=== PATIENT | female | born 1970 | race Hispanic/Latino ===

== ENCOUNTER → 2024-05-06 | Outpatient (CLI) | payer BC, OTHER ==
[~2024-05-06] MED LIST: GADOTERATE MEGLUMINE 10 MMOL/20 ML VIAL IV ONE
--- NOTE | 2024-05-06 11:59 | HMCIMG ---
MR BRAIN AND IACS WWO CON REASON: H90.3 Sensorineural hearing loss, bilateral COMPARISON: There are no prior MRI scans available for comparison. TECHNIQUE: Routine cerebral imaging protocol was performed. Images are also obtained pre and post gadolinium contrast infusion. Additional high-resolution images were obtained of the internal auditory canals before and after IV contrast. CONTRAST: 20 cc Clariscan IV. FINDINGS: There is normal appearing brain parenchyma. There are no focal mass lesions. There are no areas of abnormal contrast enhancement or abnormal signal intensity. High-resolution images show normal-appearing internal auditory canals. There are no focal masses. There is no abnormal contrast enhancement. Ventricles and sulci appear normal. Posterior fossa and brainstem structures appear unremarkable. There is no evidence of intracranial hemorrhage. Diffusion-weighted images are negative for an acute ischemic process. There are no abnormal fluid collections. Extracranial soft tissues appear normal as well. IMPRESSION: 1. Normal pre and postcontrast MRI of the brain. 2. Normal additional high-resolution pre and postcontrast images of the internal auditory canals.
== END | disposition home or self-care (01) ==
LOC: RAH 09:47
PROVIDERS: ATTEND Family Medicine
DX: H90.3 Sensorineural hearing loss, bilateral (principal); R42 Dizziness and giddiness; Z86.005 Personal history of in-situ neoplasm of middle ear and respiratory system
CPT/HCPCS: 70553; A9575